=== PATIENT | male | born 1970 | race Two or more races ===

== ENCOUNTER 2022-01-23 05:08 | Day surgery (SDC) | payer OTHER ==
[~2022-01-23] VITALS: Ht 177.8 cm; Wt 113.4 kg
[~2022-01-23 05:08] MED LIST: COZAAR100 MG PO; NIFE60TA3 PO; TOPROL XL100 M1 PO
[2022-01-23] MEDS ORDERED: MEDROLPACK PO (07:32)
[2022-01-23] MEDS ORDERED: AMOX-CLAV 875-1 EACH PO (07:32)
[2022-01-23] MEDS ORDERED: PERCOCET 5-3251 EACH PO (07:32)
[2022-01-23] MEDS ORDERED: COLACE100 MG PO (07:32)
== END 2022-01-23 11:40 | disposition home or self-care (01) ==
LOC: CIR.AMB 05:08 → SURG 05:08 → O/R 05:08 → CIR.AMB 11:40
PROVIDERS: ATTEND Orthopaedic Surgery Orthopaedic Surgery of the Spine
DX: M50.021 Cervical disc disorder at C4-C5 level with myelopathy (principal); M50.022 Cervical disc disorder at C5-C6 level with myelopathy; M50.023 Cervical disc disorder at C6-C7 level with myelopathy; Z20.822 Contact with and (suspected) exposure to COVID-19; I10 Essential (primary) hypertension; Z53.09 Procedure and treatment not carried out because of other contraindication; J95.71 Accidental puncture and laceration of a respiratory system organ or structure during a respiratory system procedure; Y65.3 Endotracheal tube wrongly placed during anesthetic procedure; Y92.234 Operating room of hospital as the place of occurrence of the external cause

== ENCOUNTER 2022-02-16 10:30 | Inpatient (IN) | payer OTHER ==
[~2022-02-16] VITALS: Ht 177.8 cm; Wt 111.1 kg
[~2022-02-16 10:30] MED LIST changes: +AMOX-CLAV 875-1 EACH PO; +COLACE100 MG PO; +MEDROLPACK PO; +PERCOCET 5-3251 EACH PO
[2022-02-27] MEDS ORDERED: MEDROLPACK PO (10:20)
[2022-02-27] MEDS ORDERED: NEURONTIN800 MG PO (10:20)
[2022-02-27] MEDS ORDERED: COLACE100 MG PO (10:20)
[2022-02-27] MEDS ORDERED: PERCOCET 5-3251 EACH PO (10:20)
[2022-02-27] MEDS ORDERED: AMOX-CLAV 875-1 EACH PO (10:20)
== END 2022-03-01 11:13 | disposition home or self-care (01) | DRG 473 ==
LOC: SURG 02-20 10:30 → O/R 02-27 05:25 → SURG 02-27 10:30
PROVIDERS: ADMIT Orthopaedic Surgery Orthopaedic Surgery of the Spine; ATTEND Orthopaedic Surgery Orthopaedic Surgery of the Spine
PROC: 0RT30ZZ Resection of Cervical Vertebral Disc, Open Approach (ICD-10-PCS; 2022-02-27)
PROC: 0PH304Z Insertion of Internal Fixation Device into Cervical Vertebra, Open Approach (ICD-10-PCS; 2022-02-27)
PROC: 07DS3ZZ Extraction of Vertebral Bone Marrow, Percutaneous Approach (ICD-10-PCS; 2022-02-27)
PROC: 4A12X4Z Monitoring of Cardiac Electrical Activity, External Approach (ICD-10-PCS; 2022-02-27)
PROC: 0RG20A0 Fusion of 2 or more Cervical Vertebral Joints with Interbody Fusion Device, Anterior Approach, Anterior Column, Open Approach (ICD-10-PCS; principal; 2022-02-27 15:30)
DX: M50.021 Cervical disc disorder at C4-C5 level with myelopathy (principal); M48.02 Spinal stenosis, cervical region; I10 Essential (primary) hypertension

== ENCOUNTER 2022-02-23 11:38 | Outpatient (CLI) | payer OTHER | END 2022-02-23 13:31 | disposition home or self-care (01) | LOC: LAB 11:38 | PROVIDERS: ATTEND Orthopaedic Surgery Orthopaedic Surgery of the Spine | DX: U07.1 COVID-19 (principal); Z03.818 Encounter for observation for suspected exposure to other biological agents ruled out; Z20.828 Contact with and (suspected) exposure to other viral communicable diseases ==